=== PATIENT | female | born 1970 | race Caucasian/White ===

== ENCOUNTER 2024-03-07 10:30 | Emergency (ER) | payer OTHER, SELFPAY ==
[2024-03-07 10:31] VITALS: BMI 41.3
[2024-03-07 10:43] VITALS: BP 144/75
[2024-03-07 11:06] VITALS: BP 125/53
--- NOTE | 2024-03-07 11:16 | ED.GENMED ---
History of Present Illness
General
Chief Complaint: Bowel Problem
Source: patient
Exam Limitations: none
Time Seen by Provider: 03/07/24 10:55
Nursing documentation reviewed up to this point in time: agreed with
History of Present Illness
History of Present Illness:
53 Y/O F 2 weeks post TKR malia
on oxycodone
has been on colace bid since but has only had 1 bowel movement 8 days ago
she has since tried doculax, suppository, 1 enema, metamucil, prune juice
and she feels rectal pressure but cannot move her bowels
she also nwo feels swollen like she has hemrrhoids
no h/o chronic consitpation
dec appetite, but no fever, vomiting
Past History
Past History
ED Past Medical History: Other (Degenerative joint disease ) and Other (Migraine headaches )
ED Past Surgical History: Appendectomy and Orthopedic (Spinal fusion )
Social History
Tobacco: Non-smoker
Alcohol: None
Living: with family
Employment: Employed
Review of Systems
Review of Systems
Allergies reviewed?: Yes
All Other Systems: Not applicable
Phy Exam
Physical Exam
Physical Exam:
GENERAL: Alert , in no apparent distress
EYE: pupils equal and reactive
NECK: Supple
ENT: o/p clr, mmm.
CARDIAC: Regular rate and rhythm .
LUNGS: Clear breath sounds bilaterally, no acute respiratory distress, no wheezes/rales/rhonchi
ABDOMEN: Soft, without focal tenderness, no r/g, no cvat, normal bowel sounds
rectal: small nonbleeding, nonthrombosed ext hemrrhoids
large amount of semi-firm stool in vault
NEUROLOGICAL: Alert and oriented, no focal neuro deficits
SKIN: Warm and dry, skin intact.
MUSCULOSKELETAL: right anterior knee incision well healed;
PSYCH: Normal and appropriate interaction.
Course
Orders/Labs/Results
Orders:
Orders
03/07/24 11:16
Obstruct Series W/PA Chest [CR Obstruct Series W/pa Chest] Urgent
Comment:
Reason For Exam: CONTIPATION POST OP; OPIATES
03/07/24 11:59
Enema- Treatment ONCE
Type: Milk of Molasses
Acetaminophen [Tylenol] 1,000 mg PO NOW STA
03/07/24 13:07
Magnesium Citrate [Citroma] 300 ml PO ONCE ONE
Vital Signs
Initial and Last Documented VS:
Initial Vital Signs
Temp Pulse Resp BP Pulse Ox
98.2 F 92 18 144/75 97
03/07/24 10:43 03/07/24 10:43 03/07/24 10:43 03/07/24 10:43 03/07/24 10:43
Last Documented Vital Signs
Temp Pulse Resp BP Pulse Ox
98.2 F 89 15 132/66 95
03/07/24 10:43 03/07/24 12:00 03/07/24 12:00 03/07/24 12:00 03/07/24 12:00
MDM/Problems Addressed
Differential Diagnosis Includes:
constipation, bowel obstruction, fecal impaction
MDM/Problems Addressed:
53 y/o F with opiate induced constipation since her knee surgery
has pressure but cannot pass stool
hsa tried a few different meds, enema
no abd pain but feels full after eating
abdomen soft and nontneder on exam
fecal impaction, firm stool in the vault which was disimpacted to how much pt could tolerate which wasn't much
enema tolerated and she did have a small bm
she would like to go home with mag citrate
miralax if needed
metamcuil
wean the oxy
*Critical Care Note
Total Time (30-74mins, 75-104mins- exclusive of procedures): Not Applicable
ED Attending Note
-
Portions of this chart may have been created with voice recognition software.� Occasional wrong word or��sound alike� substitutions may have occurred due to the inherent limitations of voice recognition software.
Discharge Plan
Departure
Patient Disposition: Home (Routine Discharge)
Date of Disposition: 03/07/24
Time of Disposition: 13:05
Patient with high blood pressure during this ER visit?: No
Condition: Fair
Covid-19: Not Applicable
Discharge Problem:
Constipation in female
Instructions: Constipation, Adult (DC), Fecal Impaction (DC)
Prescriptions:
No Action
No Current Medications
And A Med For Heartburn
1 tab PO PRN (Reason: INDIGESTION)
naproxen sodium [Aleve] 220 MG tablet
220 mg PO PRN (Reason: PAIN)
Referrals:
Cathy Ward CRNP [Family Provider] - Follow up in 5-7 days
Activity Restrictions/Additional Instructions:
TRY TO WEAN FROM YOUR OXYCODONE IF YOUR PAIN IS CONTROLLED
USE THE MAGNESIUM CITRATE 1/2 THE BOTTLE TODAY THEN WAIT 12 HOURS AND DO THE OTHER HALF OF THE BOTTLE IF YOU HAVE NO RELIEF
IF YOU HAVE SUCCESS THEN JUST TAKE METAMUCIL ONCE A DAY
IF YOU STILL FEEL LIKE YOU ARE CONSPTATED, AFTER THE MAGNESIUM CITRATE, TRY MIRALAX ONCE OR TWICE A DAY FOR 2-3 DAYS IN A ROW
DRINK FLUIDS
AVOID BINDING FOODS LIKE TOAST, BANANAS, RICE
RETURN FOR: FEVER, VOMITING, ABDOMINAL SWELLING, SEVERE PAIN OR ANY CONCERNS.
Interventions
Interventions:
*Risk Screen - Suicide Last Done: 03/07/24 10:43
*General Assessment Last Done: 03/07/24 10:43
*Neglect/Abuse Screening Last Done: 03/07/24 10:43
ED- Fall Risk Assessment Last Done: 03/07/24 11:13
*Nursing Disposition Last Done: 03/07/24 13:28
AE-Lfojnk-Vqvlywzses Assessment Last Done: 03/07/24 11:13
Discharge Date and Time
Discharge Date/Time: 03/07/24 13:28
Print Language: SERBIAN
[2024-03-07 11:46] VITALS: BP 130/58
[2024-03-07 12:00] VITALS: BP 132/66
[2024-03-07] MEDS: TYLENOL 1000 MG PO (12:12)
[2024-03-07] MEDS: CITROMA 300 ML PO (13:10)
== END 2024-03-07 13:28 | disposition home or self-care (01) ==
LOC: EMR 10:30
PROVIDERS: EMERGENCY PHYSICIAN Emergency Medicine; FAMILY PHYSICIAN Family Medicine
DX: K59.00 Constipation, unspecified (principal); M25.561 Pain in right knee; G43.909 Migraine, unspecified, not intractable, without status migrainosus; R01.1 Cardiac murmur, unspecified; K57.90 Diverticulosis of intestine, part unspecified, without perforation or abscess without bleeding; M19.90 Unspecified osteoarthritis, unspecified site; F33.9 Major depressive disorder, recurrent, unspecified; Z98.890 Other specified postprocedural states; Z96.651 Presence of right artificial knee joint; Z87.891 Personal history of nicotine dependence; Z98.1 Arthrodesis status
CPT/HCPCS: 99283; 74022